=== PATIENT | female | born 1985 | race Caucasian/White ===

== ENCOUNTER 2016-07-16 09:41 | Emergency (ER) | payer MEDICAID ==
[~2016-07-16] VITALS: Ht 157.5 cm; Wt 92.4 kg
[2016-07-16] MEDS ORDERED: ONDANSETRON 2MG/ML, 2ML ONE (10:19)
[2016-07-16] MEDS ORDERED: FAMOTIDINE 20 MG/2 ML ONE (10:19)
[2016-07-16] MEDS ORDERED: ONDANSETRON 2MG/ML, 2ML IVPush ONE (10:30)
[2016-07-16] MEDS ORDERED: SODIUM CHLORIDE FLUSH 10ML SYR IVF ONE (10:30)
[2016-07-16] MEDS ORDERED: FAMOTIDINE 20 MG/2 ML IVP ONE (10:30)
[2016-07-16] MEDS ORDERED: SODIUM CHLORIDE 0.9% 1,000ML IVBOLUS ONE (10:30)
[2016-07-16 10:40] LABS: BLOOD UREA NITROGEN 12 mg/dL (7-18)
[2016-07-16 10:43] LABS: ASPARTATE AMINO TRANSFERASE 22 U/L (15-37)
[2016-07-16 12:14] LABS: PATH.CAST-FLAG NOT PRESENT; SPERM-FLAG NOT PRESENT; SRC-FLAG NOT PRESENT; XTAL-FLAG NOT PRESENT; YLC-FLAG NOT PRESENT
[2016-07-16 14:07] VITALS: BP 101/70
== END 2016-07-16 14:09 | disposition home or self-care (01) ==
LOC: ED 10:10
DX: Z32.01 Encounter for pregnancy test, result positive (principal); R11.2 Nausea with vomiting, unspecified; R10.84 Generalized abdominal pain; Z90.721 Acquired absence of ovaries, unilateral; Z90.5 Acquired absence of kidney
CPT/HCPCS: 36415; 80053; 81001; 83690; 84702; 84703; 85025; 96361; 96374; 96375; 99285; J2405; J7030; S0028